=== PATIENT | male | born 1980 | race Asian ===

== ENCOUNTER 2019-09-16 05:39 | Emergency (ER) | payer SELFPAY ==
[~2019-09-16] VITALS: Ht 170.2 cm; Wt 86.4 kg
[2019-09-16 05:42] VITALS: BP 148/101
[2019-09-16] MEDS ORDERED: penicillin G benzathine 1.2 million unit/2ml syringe IM ONE (06:20)
[2019-09-17 07:12] LABS: RPR Non Reactive (Non Reactive)
== END 2019-09-16 06:48 | disposition home or self-care (01) ==
LOC: ER 05:40
DX: Z20.2 Contact with and (suspected) exposure to infections with a predominantly sexual mode of transmission (principal); J45.909 Unspecified asthma, uncomplicated; F12.90 Cannabis use, unspecified, uncomplicated
CPT/HCPCS: 36415; 86592; 96372; 99283; J0561